=== PATIENT | male | born 1985 | race Caucasian/White ===

== ENCOUNTER → 2016-08-07 | Outpatient (CLI) | payer BC ==
--- NOTE | 2016-08-07 11:36 | REP ---
Nasal bone series: Three views. History: Injury. Findings: The nasal bone and inferior maxillary spine appear to be intact. Bony orbital and paranasal sinus margins are intact. There is some fluid in the maxillary sinuses bilaterally. Zygomatic arches are intact. No mandibular fracture is appreciated. Impression: No fracture seen. Small bilateral maxillary sinus air fluid levels noted. Question sinusitis.
== END ==
LOC: M CLY 10:52
PROVIDERS: ATTEND Family Medicine
DX: S09.92XA Unspecified injury of nose, initial encounter (principal); X58.XXXA Exposure to other specified factors, initial encounter; Y92.9 Unspecified place or not applicable; Y93.9 Activity, unspecified; Y99.9 Unspecified external cause status

== ENCOUNTER → 2016-08-08 | Outpatient (REF) | payer BC ==
[2016-08-08 12:03] LABS: VITAMIN B12 LEVEL 1181 PG/ML (247-911)
[2016-08-08 12:08] LABS: ALBUMIN 3.8 GM/DL (3.2-5.2); ALBUMIN/GLOBULIN RATIO 1.12 (1.00-1.93); ALKALINE PHOSPHATASE 87 U/L (45-117); ALT/SGPT 30 U/L (12-78); ANION GAP 6 MEQ/L (8-16); AST/SGOT 17 U/L (15-37); BILIRUBIN,TOTAL 0.4 MG/DL (0.2-1.0); BLOOD UREA NITROGEN 14 MG/DL (7-18); CALCIUM LEVEL 8.6 MG/DL (8.5-10.1); CARBON DIOXIDE LEVEL 33 MEQ/L (21-32); CHLORIDE LEVEL 103 MEQ/L (98-107); CHOLESTEROL LEVEL 135 MG/DL (<200); GAMMA GLUTAMYLTRANSPEPTIDASE 24 U/L (15-85); GLOMERULAR FILTRATION RATE > 60.0 (>60); GLUCOSE, FASTING 83 MG/DL (70-105); POTASSIUM SERUM 4.2 MEQ/L (3.5-5.1); SODIUM LEVEL 142 MEQ/L (136-145); TOTAL PROTEIN 7.2 GM/DL (6.4-8.2); TRIGLYCERIDES LEVEL 75 MG/DL (<150)
== END ==
LOC: M SFHCCLAY 07:52
PROVIDERS: ATTEND Family Medicine
DX: F95.9 Tic disorder, unspecified (principal); Z00.00 Encounter for general adult medical examination without abnormal findings

== ENCOUNTER 2017-03-12 08:30 | Emergency (ER) | payer BC, OTHER ==
[~2017-03-12] VITALS: Ht 188 cm; Wt 86.4 kg
[2017-03-12] MEDS ORDERED: ALPR0.5T3 (09:01)
[2017-03-12 14:24] VITALS: BP 139/87
== END 2017-03-12 14:26 | disposition home or self-care (01) ==
LOC: M ED 08:30
DX: F43.9 Reaction to severe stress, unspecified (principal); T51.0X2A Toxic effect of ethanol, intentional self-harm, initial encounter; Z72.0 Tobacco use

== ENCOUNTER → 2018-02-19 | Outpatient (CLI) | payer SELFPAY ==
[2018-02-19 17:05] LABS: BASO % 0.3 % (0.0-1.0); EOS % 0.2 % (0.0-3.0); HEMATOCRIT 44.9 % (42.0-52.0); HEMOGLOBIN 15.5 g/dl (13.5-17.5); IMMATURE GRANULOCYTE % 0.6 % (0-3.0); LYMPH % 18.9 % (24.0-44.0); MEAN CORPUSCULAR HEMOGLOBIN 29.7 pg (27.0-33.0); MEAN CORPUSCULAR HGB CONC 34.5 g/dl (32.0-36.5); MONO # 0.5 10^3/uL (0.0-0.8); MONO % 5.2 % (0.0-5.0); NEUTROPHILS # 7.7 10^3/uL (1.8-7.7); NEUTROPHILS % 74.8 % (36.0-66.0); PLATELET COUNT, AUTOMATED 196 10^3/uL (150-450); RED BLOOD COUNT 5.22 10^6/uL (4.30-6.10); RED CELL DISTRIBUTION WIDTH 12.1 % (11.5-14.5); WHITE BLOOD COUNT 10.3 10^3/uL (4.0-10.0)
== END ==
LOC: M WUC 12:17
DX: L03.012 Cellulitis of left finger (principal)
CPT/HCPCS: 85025

== ENCOUNTER 2021-02-14 14:01 | Emergency (ER) | payer SELFPAY ==
[~2021-02-14] VITALS: Ht 188 cm; Wt 95.5 kg
[~2021-02-14 14:01] MED LIST: ALPR0.5T3
[2021-02-14 14:02] VITALS: BP 138/85
--- NOTE | 2021-02-14 15:58 | REP ---
INDICATION: right elbow swelling, hit elbow when turning COMPARISON: None. TECHNIQUE: Four views right elbow. FINDINGS: There is no evidence of acute fracture, dislocation, or intrinsic bone disease.There is moderate soft tissue swelling over the olecranon. IMPRESSION: No fracture or dislocation. Moderate soft tissue swelling. <Electronically signed by Mckinley Felix > 02/14/21 [id number]
[2021-02-14] MEDS ORDERED: NAPR500T6 PO (16:05)
== END 2021-02-14 16:20 | disposition home or self-care (01) ==
LOC: M ED 14:01
DX: S50.01XA Contusion of right elbow, initial encounter (principal); M70.21 Olecranon bursitis, right elbow; W22.8XXA Striking against or struck by other objects, initial encounter; Y92.9 Unspecified place or not applicable; Y93.9 Activity, unspecified; Y99.0 Civilian activity done for income or pay

== ENCOUNTER → 2021-02-28 | Outpatient (REF) | payer OTHER ==
[~2021-02-28] MED LIST changes: +NAPR500T6 PO
[2021-02-28 13:16] LABS: CRYSTALS, BODY FLUID NONE SEEN (NONE SEEN); SOURCE, BODY FLUID CRYSTALS RT ELBOW
== END ==
LOC: M LAB REF 11:49
PROVIDERS: ATTEND Orthopaedic Surgery
DX: M25.521 Pain in right elbow (principal); M70.21 Olecranon bursitis, right elbow

== ENCOUNTER → 2021-03-21 | Outpatient (CLI) | payer OTHER ==
--- NOTE | 2021-03-21 13:57 | REP ---
INDICATION: RECURRENT RT OLECRANON BURSITIS. COMPARISON: None. TECHNIQUE: Multiple sequences obtained in the axial, coronal and sagittal planes. FINDINGS: The osseous structures demonstrate no abnormal bone marrow signal. There is no occult fracture. The common flexor and extensor tendons demonstrate no abnormal signal. The medial and lateral collateral ligaments are intact. The biceps, triceps, brachialis and brachioradialis appear intact. No ganglion cyst is seen. There is a small joint effusion. There is complex fluid in the olecranon bursa consistent with complex olecranon bursitis. No osteochondral defect is seen. There is mild enlargement and increased T2 signal of the ulnar nerve in the region of the cubital tunnel which may indicate some degree of ulnar neuritis. IMPRESSION: Complex olecranon bursitis. Possible ulnar neuritis. No occult fracture. <Electronically signed by Mckinley Felix > 03/21/21 [id number]
== END ==
LOC: M PLAIMG 12:33
PROVIDERS: ATTEND Orthopaedic Surgery
DX: M70.21 Olecranon bursitis, right elbow (principal); M25.522 Pain in left elbow

== ENCOUNTER → 2021-04-18 | Outpatient (CLI) | payer OTHER ==
--- NOTE | 2021-04-18 14:15 | REP ---
INDICATION: OLECRANON BURSITIS. COMPARISON: None. TECHNIQUE: AP, lateral, axial views of the right elbow FINDINGS: Lateral view demonstrates soft tissue swelling over the olecranon process consistent with bursitis. The osseous structures and joint spaces appear otherwise normal. No evidence for acute or healed injury. IMPRESSION: Posterior swelling consistent with bursitis. <Electronically signed by Tomy Dumont > 04/18/21 [id number]
== END ==
LOC: M SOG 13:48
PROVIDERS: ATTEND Orthopaedic Surgery
DX: M70.21 Olecranon bursitis, right elbow (principal)

== ENCOUNTER → 2021-09-06 | Outpatient (REF) | payer OTHER ==
[2021-09-06 12:04] LABS: HEMATOCRIT 46.3 % (42.0-52.0); HEMOGLOBIN 15.7 g/dl (13.5-17.5); MEAN CORPUSCULAR HGB CONC 33.9 g/dl (32.0-36.5); MEAN CORPUSCULAR VOLUME 85.6 fl (80.0-96.0); PLATELET COUNT, AUTOMATED 185 10^3/uL (150-450); RED BLOOD COUNT 5.41 10^6/uL (4.30-6.10); WHITE BLOOD COUNT 5.5 10^3/uL (4.0-10.0)
[2021-09-06 12:34] LABS: ALBUMIN 4.2 GM/DL (3.2-5.2); ALT/SGPT 32 U/L (12-78); BILIRUBIN,TOTAL 0.5 MG/DL (0.2-1.0); BLOOD UREA NITROGEN 16 MG/DL (7-18); CALCIUM LEVEL 9.4 MG/DL (8.5-10.1); CARBON DIOXIDE LEVEL 32 MEQ/L (21-32); CHLORIDE LEVEL 105 MEQ/L (98-107); CHOLESTEROL LEVEL 168 MG/DL (<200); CREATININE FOR GFR 1.09 MG/DL (0.70-1.30); FREE T4 0.83 NG/DL (0.76-1.46); GLOMERULAR FILTRATION RATE > 60.0 (>60); GLUCOSE, FASTING 88 MG/DL (70-100); HDL CHOLESTEROL 40 MG/DL (>40); LDL CHOLESTEROL 110 MG/DL (<100); NON-HDL-C 128 MG/DL; POTASSIUM SERUM 4.6 MEQ/L (3.5-5.1); SODIUM LEVEL 140 MEQ/L (136-145); THYROID STIMULATING HORMONE 0.451 uIU/ML (0.358-3.740); TOTAL PROTEIN 7.3 GM/DL (6.4-8.2); TRIGLYCERIDES LEVEL 92 MG/DL (<150)
== END ==
LOC: M SFHCCLAY 09:03
PROVIDERS: ATTEND Nurse Practitioner Family
DX: F41.9 Anxiety disorder, unspecified (principal); Z13.220 Encounter for screening for lipoid disorders

== ENCOUNTER → 2022-02-08 | Outpatient (CLI) | payer OTHER | LOC: M SLEEP HO 14:10 | PROVIDERS: ATTEND Nurse Practitioner Family | DX: R06.83 Snoring (principal) ==

== ENCOUNTER → 2022-12-27 | Outpatient (CLI) | payer OTHER | LOC: M CLY 12:04 | PROVIDERS: ATTEND Physician Assistant Medical | DX: R22.2 Localized swelling, mass and lump, trunk (principal); R05.3 Chronic cough ==

== ENCOUNTER → 2023-01-16 | Outpatient (REF) | payer OTHER | LOC: M SFHCWAGY 12:54 → M SMT 12:54 | PROVIDERS: ATTEND Urology | DX: Z30.2 Encounter for sterilization (principal) ==

== ENCOUNTER → 2023-02-18 | Outpatient (CLI) | payer OTHER | LOC: M PLAIMG 09:17 | PROVIDERS: ATTEND Physician Assistant Medical | DX: R91.1 Solitary pulmonary nodule (principal) ==

== ENCOUNTER → 2023-11-01 | Outpatient (REF) | payer OTHER ==
[2023-11-01 17:45] LABS: BASO # 0.1 10^3/uL (0.0-0.2); BASO % 0.7 % (0.0-1.0); EOS # 0.1 10^3/uL (0.0-0.5); EOS % 1.6 % (0.0-3.0); HEMOGLOBIN 15.6 g/dl (13.5-17.5); LYMPH # 2.8 10^3/uL (1.5-5.0); LYMPH % 38.8 % (24.0-44.0); MEAN CORPUSCULAR HEMOGLOBIN 30.1 pg (27.0-33.0); MEAN CORPUSCULAR HGB CONC 34.7 g/dl (32.0-36.5); MEAN CORPUSCULAR VOLUME 86.9 fl (80.0-96.0); MONO # 0.5 10^3/uL (0.0-0.8); MONO % 6.6 % (2.0-8.0); NEUTROPHILS # 3.8 10^3/uL (1.5-8.5); PLATELET COUNT, AUTOMATED 211 10^3/uL (150-450); RED BLOOD COUNT 5.18 10^6/uL (4.30-6.10); WHITE BLOOD COUNT 7.3 10^3/uL (4.0-10.0)
[2023-11-01 18:16] LABS: C REACTIVE PROTEIN QUANTITATIV < 0.40 MG/DL (<1.0)
[2023-11-01 18:17] LABS: RHEUMATOID FACTOR QUANT 3.7 IU/ML (<14)
[2023-11-01 18:18] LABS: ALKALINE PHOSPHATASE 74 U/L (46-116); ALT/SGPT 23 U/L (7.0-40); AST/SGOT 16 U/L (<34); BILIRUBIN,TOTAL 1.1 MG/DL (0.3-1.2); BLOOD UREA NITROGEN 16 MG/DL (9-23); CALCIUM LEVEL 8.9 MG/DL (8.5-10.1); CARBON DIOXIDE LEVEL 25 MMOL/L (20-31); CHLORIDE LEVEL 103 MMOL/L (98-107); CREATININE FOR GFR 1.22 MG/DL (0.70-1.30); GLOMERULAR FILTRATION RATE > 60.0 (>60); GLUCOSE, FASTING 106 MG/DL (60-100); POTASSIUM SERUM 3.7 MMOL/L (3.5-5.1); SODIUM LEVEL 139 MMOL/L (136-145); TOTAL PROTEIN 6.6 G/DL (5.7-8.2)
[2023-11-01 18:36] LABS: ERYTHROCYTE SEDIMENTATION RATE < 1 mm/hr (0-15)
[2023-11-04 19:07] LABS: CYCLIC CITRULLINATED PEPTIDE 5 units (0-19)
== END ==
LOC: M SFHCCLAY 14:35
PROVIDERS: ATTEND Physician Assistant
DX: M25.50 Pain in unspecified joint (principal)

== ENCOUNTER → 2023-12-11 | Outpatient (REF) | payer OTHER | LOC: M SFHCCLAY 08:57 | PROVIDERS: ATTEND Nurse Practitioner Family | DX: Z79.899 Other long term (current) drug therapy (principal) ==

== ENCOUNTER → 2024-02-11 | Outpatient (REF) | payer OTHER | LOC: EEVIPCON 16:14 → M LAB REF 16:14 | PROVIDERS: ATTEND Physician Assistant Medical | DX: L02.214 Cutaneous abscess of groin (principal) ==

== ENCOUNTER 2024-02-16 03:00 | Emergency (ER) | payer OTHER ==
[~2024-02-16] VITALS: Ht 180.3 cm; Wt 86.1 kg
[2024-02-16] MEDS: BOOSTRIX VACCINE (TETANUS/DIPHTH/ACEL. PERTUSSIS) 0.5ML SYR IM.IMMUN ONE (06:18)
[2024-02-16 08:10] LABS: BASO % 0.3 % (0.0-1.0); EOS # 0.1 10^3/uL (0.0-0.5); EOS % 0.8 % (0.0-3.0); HEMATOCRIT 46.1 % (42.0-52.0); HEMOGLOBIN 15.5 g/dl (13.5-17.5); LYMPH % 16.8 % (24.0-44.0); MEAN CORPUSCULAR HEMOGLOBIN 29.8 pg (27.0-33.0); MEAN CORPUSCULAR HGB CONC 33.6 g/dl (32.0-36.5); MEAN CORPUSCULAR VOLUME 88.5 fl (80.0-96.0); MONO # 0.6 10^3/uL (0.0-0.8); MONO % 4.9 % (2.0-8.0); NEUTROPHILS % 76.3 % (36.0-66.0); PLATELET COUNT, AUTOMATED 253 10^3/uL (150-450); RED BLOOD COUNT 5.21 10^6/uL (4.30-6.10); WHITE BLOOD COUNT 11.8 10^3/uL (4.0-10.0)
[2024-02-16 08:29] LABS: ETHYL ALCOHOL (ETHANOL) 0.206 % (0.000-0.010)
[2024-02-16 08:31] LABS: ALBUMIN 4.2 G/DL (3.2-5.2); ALKALINE PHOSPHATASE 74 U/L (46-116); ALT/SGPT 16 U/L (7.0-40); AST/SGOT 20 U/L (<34); BILIRUBIN,DIRECT 0.2 MG/DL (<0.4); BILIRUBIN,TOTAL 0.6 MG/DL (0.3-1.2); BLOOD UREA NITROGEN 12 MG/DL (9-23); CALCIUM LEVEL 8.9 MG/DL (8.5-10.1); CARBON DIOXIDE LEVEL 28 MMOL/L (20-31); CHLORIDE LEVEL 102 MMOL/L (98-107); CREATININE FOR GFR 0.98 MG/DL (0.70-1.30); GLOMERULAR FILTRATION RATE > 60.0 (>60); GLUCOSE, FASTING 84 MG/DL (60-100); POTASSIUM SERUM 4.2 MMOL/L (3.5-5.1); SALICYLATE LEVEL < 3.0 MG/DL (<30); SODIUM LEVEL 135 MMOL/L (136-145); TOTAL PROTEIN 7.1 G/DL (5.7-8.2)
[2024-02-16 08:33] LABS: THYROID STIMULATING HORMONE 0.304 uIU/ML (0.55-4.78)
[2024-02-16 11:35] VITALS: BP 124/89; TEMP 97; O2SAT 98
== END 2024-02-16 11:40 | disposition home or self-care (01) ==
LOC: M ED 03:00
DX: F10.129 Alcohol abuse with intoxication, unspecified (principal); S00.81XA Abrasion of other part of head, initial encounter; S40.212A Abrasion of left shoulder, initial encounter; W19.XXXA Unspecified fall, initial encounter; Y92.481 Parking lot as the place of occurrence of the external cause; Y93.9 Activity, unspecified; Y99.9 Unspecified external cause status; F32.A Depression, unspecified; F41.9 Anxiety disorder, unspecified; K21.9 Gastro-esophageal reflux disease without esophagitis; Z86.14 Personal history of Methicillin resistant Staphylococcus aureus infection

== ENCOUNTER → 2024-11-12 | Outpatient (CLI) | payer OTHER ==
[~2024-11-12] MED LIST changes: +NAPR-1405 PO; -NAPR500T6 PO
== END ==
LOC: M CLY 13:33
PROVIDERS: ATTEND Physician Assistant
DX: R05.3 Chronic cough (principal)

== ENCOUNTER → 2024-12-29 | Outpatient (CLI) | payer OTHER | LOC: M PLAIMG 12-15 08:42 → M RAD 17:15 | PROVIDERS: ATTEND Physician Assistant | DX: R05.3 Chronic cough (principal); J84.10 Pulmonary fibrosis, unspecified; R43.0 Anosmia; J32.0 Chronic maxillary sinusitis ==

== ENCOUNTER 2025-04-17 03:46 | Emergency (ER) | payer OTHER ==
[~2025-04-17] VITALS: Ht 190.5 cm; Wt 91.4 kg
[2025-04-17 06:19] VITALS: BP 137/84; TEMP 98.1; O2SAT 100
== END 2025-04-17 07:21 | disposition left against medical advice (07) ==
LOC: M ED 03:46
DX: Z53.21 Procedure and treatment not carried out due to patient leaving prior to being seen by health care provider (principal)